=== PATIENT | female | born 1970 | race Caucasian/White ===

== ENCOUNTER 2021-01-21 09:47 | Emergency (ER) | payer MEDICAID ==
[~2021-01-21] VITALS: Ht 152.4 cm; Wt 88.0 kg
[2021-01-21 10:02] VITALS: BP 139/92
--- NOTE | 2021-01-21 10:23 | NUR ---
araceli at bedside for x-ray
--- NOTE | 2021-01-21 11:26 | NUR ---
Patient discharged to home in stable condition. Written and verbal after care instructions given. Patient verbalizes understanding of instruction.
== END 2021-01-21 11:26 | disposition home or self-care (01) ==
LOC: ER 09:56
DX: S83.8X1A Sprain of other specified parts of right knee, initial encounter (principal); X50.1XXA Overexertion from prolonged static or awkward postures, initial encounter; Y93.89 Activity, other specified; Y92.89 Other specified places as the place of occurrence of the external cause; Y99.8 Other external cause status
CPT/HCPCS: 73564-TC